=== PATIENT | male | born 1985 | race Two or more races ===

== ENCOUNTER 2017-03-21 09:48 | Emergency (ER) | payer SELFPAY ==
[2017-03-21] MEDS ORDERED: LIDOCAINE 1% INJ-PF (10 MG/ML) 30 ML SDV INJ ONE (12:14)
[2017-03-21] MEDS ORDERED: KETOROLAC TROMETHAMINE 60 MG/2 ML SDV IM ONE (12:14)
--- NOTE | 2017-03-21 12:21 | ER Document Report ---
ED Skin Rash/Insect Bite/Abscs - General Chief Complaint: Abscess Stated Complaint: SKIN SORE Time Seen by Provider: 03/21/17 11:55 Notes: 31 yo male c/o painful swollen area to left buttock x 3-4 days. also c/o hearing voices. pt has hx/o psychosis, depression and bipolar. reports he has been off his meds (seroquil, wellbutrin and effexor) x 3 weeks. denies SI/HI[facility] from [place], not established with psych. TRAVEL OUTSIDE OF THE U.S. IN LAST 30 DAYS: No - HPI Patient complains to provider of: Tender/swollen area Onset/Duration: Gradual, Persistent Quality of pain: Pressure Skin Character: Abscess, Drainage, Erythema Skin Temperature: Warm Similar symptoms previously: Yes Recently seen / treated by doctor: No - Related Data Allergies/Adverse Reactions: No Known Allergies Allergy (Unverified 03/21/17 09:50) Past Medical History - General Information source: Patient - Social History Smoking Status: Current Some Day Smoker Frequency of alcohol use: None Drug Abuse: None Lives with: Family - living with Aunt Family History: Reviewed & Not Pertinent Patient has suicidal ideation: No Patient has homicidal ideation: No Renal/ Medical History: Denies: Hx Peritoneal Dialysis GI Medical History: Reports: Hx Hepatitis - Hep C Skin Medical History: Reports Hx MRSA Psychiatric Medical History: Reports: Hx Anxiety, Hx Attention Deficit Hyperactivity Disorder, Hx Bipolar Disorder, Hx Depression Review of Systems - Review of Systems Constitutional: No symptoms reported EENT: No symptoms reported Cardiovascular: No symptoms reported Respiratory: No symptoms reported Gastrointestinal: No symptoms reported Genitourinary: No symptoms reported Male Genitourinary: No symptoms reported Musculoskeletal: No symptoms reported Skin: See HPI Hematologic/Lymphatic: No symptoms reported Neurological/Psychological: See HPI Physical Exam - Vital signs Vitals: Temp Pulse Resp BP Pulse Ox 98.3 F 87 18 113/65 100 03/21/17 09:57 03/21/17 09:57 03/21/17 09:57 03/21/17 09:57 03/21/17 09:57 Interpretation: Normal - General General appearance: Appears well, Alert In distress: None - HEENT Head: Normocephalic, Atraumatic Eyes: Normal Pupils: PERRL - Respiratory Respiratory status: No respiratory distress Chest status: Nontender Breath sounds: Normal Chest palpation: Normal - Cardiovascular Rhythm: Regular Heart sounds: Normal auscultation Murmur: No - Abdominal Inspection: Normal Distension: No distension Bowel sounds: Normal Tenderness: Nontender Organomegaly: No organomegaly - Back Back: Normal, Nontender - Extremities General upper extremity: Normal inspection, Nontender, Normal color, Normal ROM , Normal temperature General lower extremity: Normal inspection, Nontender, Normal color, Normal ROM , Normal temperature, Normal weight bearing. No: Antoine's sign - Neurological Neuro grossly intact: Yes Cognition: Normal Orientation: AAOx4 Agusto Coma Scale Eye Opening: Spontaneous Agusto Coma Scale Verbal: Oriented Agusto Coma Scale Motor: Obeys Commands Hernando Coma Scale Total: 15 Speech: Normal Motor strength normal: LUE, RUE, LLE, RLE Sensory: Normal - Psychological Associated symptoms: Normal affect, Normal mood - Skin Skin Temperature: Warm Skin Moisture: Dry Skin Color: Normal Skin irregularity: Abscess - dime sized induration right buttock with surrounding erythema Course - Re-evaluation Re-evalutation: 03/21/17 16:13 consulted [facility] ED Mental Health. pt evaluated at bedside by psych. Dr Collado recommends Effexor 75mg QD and Seroquel 100mg qhs. I will write 2 wk script for these. [facility] outpatient referral list given to pt to establish with primary care. pt is agreeable and stable for discharge - Vital Signs Vital signs: Temp Pulse Resp BP Pulse Ox 98.3 F 87 18 113/65 100 03/21/17 09:57 03/21/17 09:57 03/21/17 09:57 03/21/17 09:57 03/21/17 09:57 Discharge - Discharge Clinical Impression: Abscess, Bipolar 1 disorder Condition: Stable Disposition: HOME, SELF-CARE Instructions: Abscess ([facility]), Post Incision and Drainage, Trimethoprim-Sulfa ( [facility]) Additional Instructions: wash area with antibacterial soap and water apply antibiotic ointment after washing apply moist heat to area take antibiotic as prescribed community outpatient referral list provided for you please establish with primary care 2 wk supply of effexor and Seroquel written today Prescriptions: Quetiapine Fumarate [Seroquel] 100 mg PO QHS #14 tablet Sulfamethoxazole/Trimethoprim [Bactrim Ds Tablet] 1 each PO BID #20 tablet Venlafaxine HCl [Effexor 75 mg Tablet] 75 mg PO DAILY #14 tab
[2017-03-21 16:30] VITALS: BP 105/66
--- NOTE | 2017-03-22 13:40 | PSYCHOLOGICAL NOTE ---
Psych Note - Psych Note Psych Note: Patient presents to [facility] ED for medical concern and disclosed he is also hearing voices. Patient states that he has a history of psychosis and depression with bipolar. Patient states that he has been off his medications for 3 weeks. Patient denies suicidal and homicidal ideation. Disclose that he is recently moved here from [place]. He is "still deciding" if he is going to stay permanently in [facility]. Patient states that he has a history of schizoaffective bipolar. Patient states that he ran out of his medications approximately 3 weeks ago. Patient previously was in the partial hospitalization program in [place]. He states that Sunday through Sunday from he was at the hospital. He disclosed that he was taking Seroquel, Effexor, and Wellbutrin. He continued to state that he hears voices mainly inside his head, there are multiple voices of people that he knows and they say negative things. Patient states that he did hear a voice outside his head approximately 5 days ago that scared him. Patient denies voices or telling him to do anything. Patient's aunt, Stacie, accompanied patient. She disclosed the patient has very good coping skills. She states that since he has been staying at her home she has noticed that he has good habits of going to bed at a healthy time however it is noted that he starts to wake up about 3:00 however he does attempt to stay sleeping. She continued note that when he does have times of extreme mood shifts or responding to internal stimuli she can see that he is actively engaged in working through his symptoms. She reports the patient was in an unhealthy living situation in [place] and was exposed to substance abuse. Patient contacted her requesting to come down here for new start an attempt to get away from that environment and stay clean. Patient is alert and orientated to person, place, time and circumstance. Mood is euthymic with restricted affect. Patient denies suicidal homicidal ideation. Patient denies current auditory or visual hallucinations. Patient discloses he does have auditory hallucinations on and off which started approximately 3 weeks ago when he stopped taking medication. Illusions are absent behaviors congruent with intact reality based presentation i.e. organized , linear, rational thinking. Eye contact was good. Conversational speech was within normal rate, tone and prosody. Intellectual abilities appear to be within the average range. Attention and concentration were good. Insight, judgment,, impulse control are good. 295.70 (2 5.0) schizoaffective disorder; bipolar type Impression\\plan: Patient is considered psychiatrically clear. Patient does not meet IVC criteria per [place] GS 122C. Patient denies suicidal and homicidal ideation. Patient currently is not demonstrating any behaviors congruent with psychosis i.e. patient has organized, linear, rational thinking, with good eye contact. Patient discloses auditory hallucinations denies current internal stimuli. Patient is new to area and is requesting both assistance in medications and local resources for psychiatric treatment. Behavior health team provided medication recommendations to attending physician provided resource list to patient. Dr. Collado was consulted and the care and management of this patient; attending physician is agreement with recommendations and disposition per
== END 2017-03-21 16:32 | disposition home or self-care (01) ==
LOC: ER 09:48
DX: L02.31 Cutaneous abscess of buttock (principal); F31.9 Bipolar disorder, unspecified; F32.9 Major depressive disorder, single episode, unspecified; Z79.899 Other long term (current) drug therapy; F17.200 Nicotine dependence, unspecified, uncomplicated
CPT/HCPCS: 99284; 96372; J1885

== ENCOUNTER 2017-03-23 23:08 | Emergency (ER) | payer MEDICAID ==
[2017-03-23 23:13] VITALS: BP 114/68
--- NOTE | 2017-03-23 23:38 | ER Document Report ---
HPI - HPI Pain Level: 4 Notes: Patient is a 31-year-old male with a history of mental health disorders, hep C, MRSA who presents the ED complaining of worsening abscess to his right buttock over the last 3-4 days. Patient states that he was evaluated a couple days ago here and was placed on Bactrim that did not seem to help. 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 Patient states that he is from [facility] and just moved here recently to live with his aunt who is trying to set up medical care for him. Patient states that he noticed a little bit of discharge from the abscess itself over the last day. Otherwise she is still eating and drinking without any difficulties. He still urinating normally having normal bowel movements. Patient denies any drug allergies. Denies any headache, fever, URI , sore throat, chest pain, palpitations, syncope, cough, shortness of breath, wheeze, dyspnea, abdominal pain, nausea/vomiting/diarrhea, urinary retention, dysuria, hematuria. - ROS Notes: REVIEW OF SYSTEMS: CONSTITUTIONAL : Denies fever, chills, or sweats. Denies recent illness. EENT: Denies eye, ear, throat, or mouth pain or symptoms. Denies nasal or sinus congestion or discharge. Denies throat, tongue, or mouth swelling or difficulty swallowing. CARDIOVASCULAR: Denies chest pain. Denies palpitations or racing or irregular heart beat. RESPIRATORY: Denies cough, cold, or chest congestion. Denies shortness of breath, difficulty breathing, or wheezing. GASTROINTESTINAL: Denies abdominal pain or distention. Denies nausea, vomiting , or diarrhea. Denies blood in vomitus, stools, or per rectum. Denies black, tarry stools. Denies constipation. GENITOURINARY: Denies difficulty urinating, painful urination, burning, frequency, blood in urine, or discharge. MUSCULOSKELETAL: Denies back or neck pain or stiffness. Denies joint pain or swelling. SKIN: see hpi NEUROLOGICAL: Denies confusion or altered mental status. Denies passing out or loss of consciousness. Denies dizziness or lightheadedness. Denies headache. Denies weakness or paralysis or loss of use of either side. Denies problems with gait or speech. Denies sensory loss, numbness, or tingling. ALL OTHER SYSTEMS REVIEWED AND NEGATIVE. Dictation was performed using [employer] voice recognition software Past Medical History - Social History Smoking Status: Unknown if Ever Smoked Family History: Reviewed & Not Pertinent Renal/ Medical History: Denies: Hx Peritoneal Dialysis GI Medical History: Reports: Hx Hepatitis - Hep C Skin Medical History: Reports Hx MRSA Psychiatric Medical History: Reports: Hx Anxiety, Hx Attention Deficit Hyperactivity Disorder, Hx Bipolar Disorder, Hx Depression Infectious Medical History: Reports: Hx Hepatitis - Hep C Vertical Provider Document - CONSTITUTIONAL Agree With Documented VS: Yes Notes: PHYSICAL EXAMINATION: GENERAL: Well-appearing, well-nourished and in no acute distress. A&Ox4 LUNGS: Breath sounds clear to auscultation bilaterally and equal. No wheezes rales or rhonchi. HEART: Regular rate and rhythm without murmurs, rubs, gallops. Musculoskeletal: FROM to passive/active. Strength 5+/5. Extremities: No cyanosis, clubbing, or edema b/l. Peripheral pulses 2+. Capillary refill less than 3 seconds. NEUROLOGICAL: Cranial nerves grossly intact. Normal speech, normal gait. Normal sensory, motor exams PSYCH: Normal mood, normal affect. SKIN: + 2cm erythemic, indurated, cellulitic area to the rt superior buttock with scant discharge. No abscess pocket palpated. + tenderness to palp. - INFECTION CONTROL TRAVEL OUTSIDE OF THE [place]. IN LAST 30 DAYS: No - RESPIRATORY O2 Sat by Pulse Oximetry: 99 Course - Re-evaluation Re-evalutation: 03/23/17 23:35 Patient is an afebrile, well-hydrated, 31-year-old male who presents the ED with cellulitis, suspect MRSA. Vitals are stable. PE is otherwise unremarkable. There is currently no abscess present. Wound cx obtained of the scant discharge. Patient declined I&D today and would like p.o. antibiotics. Patient understands that he needs to monitor symptoms closely and seek medical attention with any other worsening or acute changes to his symptoms. I will start him on clindamycin to take as directed as well as mupirocin cream. Conservative measures for symptoms. Wound instructions as reviewed. Recheck/ establish with PCM 1 week. Consider consult with general surgery as well. Return to the ED with any worsening/concerning symptoms otherwise as reviewed in discharge. Patient is in agreement. - Vital Signs Vital signs: Temp Pulse Resp BP Pulse Ox 98.4 F 72 16 114/68 99 03/23/17 23:12 03/23/17 23:12 03/23/17 23:12 03/23/17 23:12 03/23/17 23:12 Discharge - Discharge Clinical Impression: MRSA cellulitis Condition: Stable Disposition: HOME, SELF-CARE Instructions: MRSA Cellulitis ([facility]), Clindamycin ([facility]) Additional Instructions: Keep the skin clean use mupirocin to the nose 2-3 times per day for 2-3 weeks and take a bleach bath Wash with soap and water Epsom salt soaks in warm water Tylenol/ibuprofen if needed Triple antibiotic ointment daily Take medication as directed Monitor for any worsening symptoms Recheck with your PCM in 3-5 days Consider consult with General Surgeon for ongoing/worsening symptoms Return to the ED with any worsening symptoms and/or development of fever, headache, chest pain, palpitations, syncope, shortness of breath, trouble breathing, abdominal pain, n/v/d, abscess, purulent discharge, red streaks, worsening swelling, or other worsening symptoms that are concerning to you. Prescriptions: Clindamycin HCl [Cleocin 300 mg Capsule] 300 mg PO TID #30 capsule Mupirocin 1 gm TP TID #1 bottle Referrals: NICKO YANG MD [[facility]] - Follow up as needed JESUS NUNES MD [ACTIVE STAFF] - Follow up as needed [facility] [Provider Group] - Follow up as needed
[2017-03-23] MEDS ORDERED: CLINDAMYCIN HCL 150 MG CAPSULE PO ONE (23:40)
[2017-03-23] MEDS ORDERED: KETOROLAC TROMETHAMINE INJ/PF 30 MG/1 ML SDV IM ONE (23:41)
== END 2017-03-24 | disposition home or self-care (01) ==
LOC: ER 23:08
DX: L03.317 Cellulitis of buttock (principal); B95.62 Methicillin resistant Staphylococcus aureus infection as the cause of diseases classified elsewhere
CPT/HCPCS: 99283; 96372; 87070; 87205; 87075; 87077; 87186; J1885

== ENCOUNTER 2017-04-02 09:03 | Emergency (ER) | payer MEDICAID ==
[2017-04-02 09:10] VITALS: BP 113/58
--- NOTE | 2017-04-02 09:50 | ER Document Report ---
HPI - HPI Patient complains to provider of: medication and follow up wound Onset: Other - chronic Onset/Duration: Persistent Quality of pain: No pain Severity: None Pain Level: Denies Context: 31-year-old male presents to ED for follow-up of abscess to the buttocks as well as need to have Seroque that he is out of it and he is from [place] and has not got his Medicaid switched to [place] yet. Associated Symptoms: None Exacerbated by: Denies Relieved by: Denies Similar symptoms previously: Yes Recently seen / treated by doctor: Yes - ROS ROS below otherwise negative: Yes - CONSTITUTIONAL Constitutional: DENIES: Fever, Chills - EENT EENT: DENIES: Sore Throat, Ear Pain, Nasal Drainage-Clear, Nasal Drainage- Purulent, Congestion, Eye problems - NEURO Neurology: DENIES: Headache, Weakness, Vision blurred, Dizzinesss / Vertigo - CARDIOVASCULAR Cardiovascular: DENIES: Chest pain - RESPIRATORY Respiratory: DENIES: Trouble Breathing, Coughing - GASTROINTESTINAL Gastrointestinal: DENIES: Abdominal Pain, Nausea, Patient vomiting, Diarrhea, Constipation, Black / Bloody Stools - URINARY Urinary: DENIES: Dysuria, Urgency, Frequency - REPRODUCTIVE Reproductive: DENIES: :, Postmenopausal, Abnormal bleeding / discharge - MUSCULOSKELETAL Musculoskeletal: DENIES: Extremity pain, Back Pain, Neck Pain, Swelling - DERM Skin Color: Erythema - No active infection there are healing sores Skin Problems: None Past Medical History - General Information source: Patient - Social History Smoking Status: Current Every Day Smoker Cigarette use (# per day): Yes - 8 cigarettes a day Chew tobacco use (# tins/day): No Smoking Education Provided: Yes - Less than a minute Frequency of alcohol use: Rare Drug Abuse: None Lives with: Family - He aunt Family History: Reviewed & Not Pertinent Patient has suicidal ideation: No Patient has homicidal ideation: No - Past Medical History Cardiac Medical History: Reports: None Pulmonary Medical History: Reports: None Neurological Medical History: Reports: None Endocrine Medical History: Reports: None Renal/ Medical History: Reports: None Malignancy Medical History: Reports None GI Medical History: Reports: Hx Hepatitis - Hep C Musculoskeltal Medical History: Reports Hx Musculoskeletal Trauma Skin Medical History: Reports Hx MRSA Psychiatric Medical History: Reports: Hx Anxiety, Hx Attention Deficit Hyperactivity Disorder, Hx Bipolar Disorder, Hx Depression Infectious Medical History: Reports: Hx Hepatitis - Hep C, Hx MRSA Past Surgical History: Reports: Hx Abdominal Surgery - abdominal abscess Vertical Provider Document - CONSTITUTIONAL Agree With Documented VS: Yes Exam Limitations: No Limitations General Appearance: WD/WN - INFECTION CONTROL TRAVEL OUTSIDE OF THE [place].S. IN LAST 30 DAYS: No - HEENT HEENT: Atraumatic, Normal ENT Exam, Normocephalic, PERRLA - NECK Neck: Normal Inspection, Supple - RESPIRATORY Respiratory: Breath Sounds Normal, No Respiratory Distress O2 Sat by Pulse Oximetry: 98 - CARDIOVASCULAR Cardiovascular: Regular Rate, Regular Rhythm - MUSCULOSKELETAL/EXTREMETIES Musculoskeletal/Extremeties: MAEW, FROM, Non-Tender - NEURO Level of Consciousness: Awake, Alert, Appropriate Motor/Sensory: No Motor Deficit, No Sensory Deficit, No Pronator Drift - DERM Integumentary: Warm, Dry, No Rash, Abscess - Healing abscesses no acute abscesses Course - Re-evaluation Re-evalutation: 04/02/17 10:05 Abscess and healing well to buttocks patient was given prescription for Bactroban for new little sores that are not abscesses. Patient was also given 14 days worth of Seroquel until he can follow-up with mental health worker. - Vital Signs Vital signs: Temp Pulse Resp BP Pulse Ox 97.4 F 77 18 113/58 L 98 04/02/17 09:09 04/02/17 09:09 04/02/17 09:09 04/02/17 09:09 04/02/17 09:09 Discharge - Discharge Clinical Impression: follow up abscess, Medication refill Condition: Stable Disposition: HOME, SELF-CARE Instructions: Family Physicians / Practices Prescriptions: Mupirocin [Bactroban 2% Ointment 22 gm] 22 applic TP TIDP PRN #1 tube PRN Reason: Quetiapine Fumarate [Seroquel] 300 mg PO QPMP PRN #14 tablet PRN Reason: Forms: Smoking Cessation Education
== END 2017-04-02 10:03 | disposition home or self-care (01) ==
LOC: ER 09:03
DX: L02.31 Cutaneous abscess of buttock (principal); Z76.0 Encounter for issue of repeat prescription; F17.210 Nicotine dependence, cigarettes, uncomplicated; Z71.6 Tobacco abuse counseling
CPT/HCPCS: 99281